=== PATIENT | female | born 1990 ===

== ENCOUNTER 2020-10-02 18:01 | Outpatient (CLI) | payer OTHER ==
[~2020-10-02] VITALS: Ht 167.6 cm; Wt 68.2 kg
[2020-10-02 18:15] VITALS: BP 126/73; PULSE 75; TEMP 97.8
--- NOTE | 2020-10-02 18:20 | NUR ---
Bedside report received from GIO Chen. Pt reports feeling baby move, does not appear to be uncomfortable. No contractions noted on toco, readjusted. Encouraged to hydrate.
--- NOTE | 2020-10-02 18:55 | NUR ---
RN to bedside to give Tylenol, pt asking when she can go home. Verbal orders from Dr. Regalado to give Tylenol and patient can be discharged home. Monitors off.
--- NOTE | 2020-10-02 19:15 | NUR ---
Discharge instructions reviewed with patient and spouse. Pt verbalized understanding. Seen ambulating off unit with spouse.
== END 2020-10-02 19:20 | disposition home or self-care (01) ==
LOC: LDRO 18:01 → LDR 18:35 → LDRO 18:35 → LDR 19:20
DX: O36.8130 Decreased fetal movements, third trimester, not applicable or unspecified (principal); Z3A.30 30 weeks gestation of pregnancy
CPT/HCPCS: OP

== ENCOUNTER 2020-12-03 08:40 | Inpatient (IN) | payer OTHER ==
[~2020-12-03] VITALS: Ht 167.6 cm; Wt 70.5 kg
[2020-12-04] VITALS (20 sets, daily range): BP systolic 80–143; BP diastolic 49–79; PULSE 53–82; TEMP 97–98.9
--- NOTE | 2020-12-04 06:00 | NUR ---
0600-G4L1 39.[address] Hess ambulatory to 211 for scheduled primary c/s for breech. Patient assisted to gown and onto EFM, VSS, HR reactive. Denies contractions or leaking of fluid and reports good EFM. Assessment complete. IV to left hand, blood collected and sent to lab per ordersk. LR infusing per orders. Consents reviewed and signed.
[2020-12-04 06:39] LABS: BASO % 0.2 % (0.0-2.0); EOS # 0.3 (0.0-0.7); EOS % 2.4 % (0-4.0); GRAN # 7.1 (1.4-6.5); GRAN % 66.9 % (42.2-75.2); HEMATOCRIT 39.9 % (37.0-47.0); HEMOGLOBIN 13.3 g/dl (12.5-16.0); LYMPH # 2.4 (1.2-3.4); LYMPH % 22.5 % (20.0-51.0); MEAN CELL VOLUME 93 fl (80.0-100.0); MEAN CORPUSCULAR HEMOGLOBIN 31 pg (27.0-31.0); MEAN CORPUSCULAR HGB CONC 33 g/dl (33.0-37.0); MEAN PLATELET VOLUME 10.6 fl (7.4-10.4); MONO # 0.8 (0.1-0.6); PLATELET COUNT 181 K/mm3 (130-400); RED BLOOD COUNT 4.27 M/mm3 (4.10-5.30); REDCELL DISTRIBUTION WIDTH-CV 12.8 % (11.5-14.5)
[2020-12-04] MEDS ORDERED: ASPIRIN 81M81 MG/TA2 PO (07:07)
[2020-12-04] MEDS ORDERED: PRENATAL (07:07)
--- NOTE | 2020-12-04 08:48 | NUR ---
0848-Patient ambularory to OR with this RN and spouse. In OR Dr. Hess confirms breech presentation with beside sono.
--- NOTE | 2020-12-04 10:00 | NUR ---
1000-Patient to PACU via bed. A&Ox4. Recieved report from VIANEY Reeder. VSS, see recovery flow record. Abdominal incision with fabric tape dressing C/D/I, fundal massage firm, Lochia moderate, no clots noted. Spouse and to bedside. Updated on plan of care and remained with patient.
--- NOTE | 2020-12-04 15:59 | NUR ---
Upon proceeding with moe tapia per protocol ptaient declined being swabbed at this time.
[2020-12-05 00:30] VITALS: BP 125/60; PULSE 69; TEMP 98.3
[2020-12-05 04:00] VITALS: BP 107/70; PULSE 79; TEMP 98.5
--- NOTE | 2020-12-05 06:40 | NUR ---
BEDSIDE REPORT REFUSED. REPORT RECEIVED FROM ALFREDA VIDAL RN CARE TAKEN OVER BY THIS RN.
[2020-12-05 07:53] VITALS: BP 109/63; PULSE 68; TEMP 97.7
[2020-12-05] MEDS ORDERED: IBU600 MG PO (09:11)
[2020-12-05] MEDS ORDERED: PERCOCET 325 MG1 TA2 PO (09:11)
[2020-12-05 16:34] VITALS: BP 90/58; PULSE 78; TEMP 98
[2020-12-05 20:00] VITALS: BP 105/60; PULSE 77; TEMP 98.1
[2020-12-06 04:30] VITALS: BP 100/62; PULSE 74; TEMP 98.1
[2020-12-06 06:30] VITALS: BP 104/59; PULSE 76; TEMP 98.1
== END 2020-12-06 10:25 | disposition home or self-care (01) | DRG 788 ==
LOC: OB 08:40
PROVIDERS: ADMIT Obstetrics & Gynecology
PROC: 10D00Z1 Extraction of Products of Conception, Low, Open Approach (ICD-10-PCS; principal; 2020-12-04)
DX: O32.1XX0 Maternal care for breech presentation, not applicable or unspecified (principal); Z37.0 Single live birth; O99.344 Other mental disorders complicating childbirth; F41.9 Anxiety disorder, unspecified; Z3A.39 39 weeks gestation of pregnancy
CPT/HCPCS: J0690; J1100; J1885; J2270; J2550; J2590; J2795; J7120